=== PATIENT | female | born 1955 | race Caucasian/White ===

== ENCOUNTER 2025-07-11 10:53 | Outpatient (AMB) | payer MEDICARE, SELFPAY ==
--- NOTE | 2025-07-11 11:03 | A.PHYSOV_ITS ---
Vital Signs 07/11/25 11:04 Height 5 ft 1 in Weight 148 lb BMI 28.0 Intake Visit Reasons: increased pain Intake Note: Patient is a 70 year old female who presents today with increased pain in left upper arm. 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 She previously received a shoulder injection which improved her shoulder pain, but she continues to experience pain, now localized to the elbow and arm. The pain is associated with activities such as lifting her grandson. The patient also reports having chronic neck pain and recalls receiving a pinpoint injection in her neck for this issue years ago. She is active and participates in a [employer] team, which involves rowing exercises. She underwent subacromial injection last visit with improvement in her shoulder pain. She is still experiencing 6/10 lateral elbow pain. She reports her neck pain is currently under control. Pain Description - Location: The patient describes pain extending along her arm, now primarily located in the elbow area. - Quality: The pain is described as achy and sore. - Exacerbating Factors: Pain is worsened by turning her arm and lifting objects, including her grandson. - Associated Symptoms: She reports limited arm movement due to achiness. Procedure : left subacromial injection 04/26/2025 Left lateral epicondylitis injection 07/11/2025 [facility] Surgical History (Updated 07/11/25 @ 11:09 by Allie Briggs MA) History of cholecystectomy H/O wrist surgery H/O foot surgery History of cancer surgery Social History (Updated 07/11/25 @ 11:10 by Allie Briggs MA) Alcohol intake: current Alcohol intake frequency: does not drink Patient Tobacco Use Status: Current everyday Tobacco user Review of Systems Narrative Review of Systems - Musculoskeletal: Reports pain in the arm and elbow, which is described as achy and sore. Reports limited range of motion in the affected arm. Reports chronic neck pain. Reports that prior shoulder pain has improved. Physical Exam Exam Exam: Physical Exam Cervical Spine: Nontender to palpation of her cervical spine. Special Tests: Axial Compression test: Negative Spurlings test: Negative Lhermitte's sign is Negative Upper Extremities: Full range of motion bilateral upper extremities. 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 5/5 rotator cuff strength throughout. She is tender to the lateral epicondyle palpation. Neuro: Sensation: Intact to upper extremities bilateral to light touch Strength C5 (Elbow Flexion): 5/5 on the left and 5/5 on the right. C6 (Elbow Ext): 5/5 on the left and 5/5 on the right. C7 (Elbow Ext): 5/5 on the left and 5/5 on the right. C8 (Finger Flex): 5/5 on the left and 5/5 on the right. T1 (Finger Abd/Add): 5/5 on the left and 5/5 on the right. DTR: C5 (Biceps): Left 2 Right 2 C6 (Brachioradialis): Left 2 Right 2 C7 (Triceps): Left 2 Right 2 You sign: Negative No pathologic clonus. No involuntary movement. Vital Signs: BMI result Body Mass Index 28.0 Office Procedures AMB Elbow Injection Elbow Joint injection Procedure Details: Left Lateral Epicondylitis injection: Patient was educated about the risks, complications and benefits of the procedure including but not limited to increased serum glucose, fat atrophy, pigment augmentation, infection, nerve damage, bleeding, tendon/ligament injury and pain. Questions were answered at this time. Verbal consent is obtained and the patient is eager to proceed. Patient was laid supine with the arm across the abdomen and 90 degrees of left elbow flexion with the forearm in pronation the point of maximal tenderness was identified and marked at lateral epicondyle. The patient was cleansed with Betadine over this area. Ethyl chloride was then used to desensitize the skin. Patient was then injected with 20 mg of Kenalog and 0.5 mL 2% lidocaine. The area was cleansed with an alcohol prep and a Band-Aid was applied. The patient tolerated the procedure well without immediate complication. Elbow Injection : Left Procedure code (CPT) selection complete Office Meds Kenalog 40 mg/mL suspension for injection Performing Provider: EMI Schulte Performing Location: [facility] Administered by: EMI Schulte on 07/11/25 13:26 Dose Route Admin Location Dispensed Lot Number Expiration Date [facility] [employer] Machine Operator 20 mg IM 1 mL [id number] [employer] Total Dispensed Waste 1 mL 50 % lidocaine (PF) 20 mg/mL (2 %) injection solution Performing Provider: EMI Schulte Performing Location: [facility] Administered by: EMI Schulte on 07/11/25 13:26 Dose Route Admin Location Dispensed Lot Number Expiration Date [facility] [employer] Operator 10 mg IM 50 mL [id number] Total Dispensed Waste 50 mL 0 % Assessment & Plan Assessment & Plan (1) Cervical radiculopathy: Code(s): M54.12 - Radiculopathy, cervical region Category: Medical (2) Impingement of left shoulder: Code(s): M25.812 - Other specified joint disorders, left shoulder Category: Medical (3) Tennis elbow: Code(s): M77.10 - Lateral epicondylitis, unspecified elbow Category: Medical Qualifiers: Laterality: left Qualified Code(s): M77.12 - Lateral epicondylitis, left elbow Plan Pain Management - Affect: The patient expresses frustration with her persistent symptoms. - Analgesia: A prior shoulder injection provided some relief. She received a steroid injection in her elbow during this visit. - Activities of Daily Living: Pain interferes with her ability to lift her grandson and general activities. - Aberrant Drug-Related Behaviors: None discussed. Plan Patient was informed and verbally consented to the use of an ambient scribe for clinic note documentation during this visit. 1. Elbow Tendinitis The patient's persistent arm pain, now localized to the elbow, is most consistent with elbow tendinitis, especially given the positive findings on physical exam. A steroid injection was administered to the elbow today to address the inflammation. The patient was advised to follow up in four weeks and to perform wrist-strengthening exercises. 2. Cervicalgia The patient has a history of chronic neck pain. A pinched nerve in her neck is considered a differential diagnosis for her arm pain. If the elbow injection does not resolve her symptoms in four weeks, the plan is to obtain an MRI of the cervical spine to evaluate for radiculopathy. Discussion Notes I discussed with the patient that her current pain is likely elbow tendinitis, as a prior shoulder injection helped her shoulder pain but residual discomfort remains in the elbow. We discussed that an alternative cause could be a pinched nerve in her neck. We agreed to proceed with a steroid injection into her elbow today to see if it alleviates the pain, which would help confirm the diagnosis. I explained the risks of the procedure, including infection, nerve damage, and bleeding, and obtained her consent. I informed her that if the injection is not effective, we will order an MRI of her neck in about four weeks to investigate further. I also explained that tendinitis is often a result of repetitive use over time and provided instructions for strengthening exercises. Patient Instructions - You received a steroid injection in your elbow today. - The area is numb, but this will wear off in about an hour; the steroid itself may take some time to become effective. - Avoid using a hot tub for a couple of days, but light activity is fine. - You can perform strengthening exercises by lifting a small weight, like a soup can, with your wrist for 20-30 repetitions every other day. - Please let me know if the injection does not help your pain. - If your pain is not better in four weeks, we will schedule an MRI of your neck. - Watch the injection site for any signs of infection, such as redness. Orders: Orders AMB Elbow Injection Today M77.10 - Lateral epicondylitis, unspecified elbow Coding Level of Care Code Tele Est Pt Level 3 (69614) Diagnoses Cervical radiculopathy M54.12 Impingement of left shoulder M25.812 Lateral epicondylitis of left elbow M77.12 Laterality: left CPT Codes Elbow Joint injection - Ankle Joint Injection : Left ([id number])
[2025-07-11 11:04] VITALS: BMI 28.0
== END 2025-07-11 11:33 | disposition home or self-care (01) ==
LOC: HO.HPHYS 10:54
PROVIDERS: PCP Physician Assistant Medical; Visit Provider Physician Assistant
DX: M54.12 Radiculopathy, cervical region (principal); M25.812 Other specified joint disorders, left shoulder; M77.12 Lateral epicondylitis, left elbow
CPT/HCPCS: 20605; 99213

== ENCOUNTER → 2025-07-11 10:53 | Outpatient (BNVA) | payer MEDICARE, SELFPAY | PROVIDERS: PCP Physician Assistant Medical; Visit Provider Physician Assistant | DX: M77.12 Lateral epicondylitis, left elbow (principal); M25.812 Other specified joint disorders, left shoulder; M54.12 Radiculopathy, cervical region | CPT/HCPCS: 20605; 99212; J2003; J3301 ==